=== PATIENT | male | born 1990 | race African-American/Black ===

== ENCOUNTER 2018-09-29 12:16 | Emergency (ER) | payer MEDICAID ==
[~2018-09-29] VITALS: Ht 180.3 cm; Wt 54.4 kg
[2018-09-29] MEDS ORDERED: ALBUTEROL SULFATE 2.5 MG/3 ML NEBU NEB ONE (12:45)
[2018-09-29] MEDS ORDERED: IPRATROPIUM BROMIDE 0.5 MG/2.5 ML NEBU NEB ONE (12:45)
[2018-09-29] MEDS ORDERED: predniSONE 10 MG TABLET PO ONE (12:45)
[2018-09-29] MEDS ORDERED: ALBUTEROL SULFATE 2.5 MG/ 0.5 ML NEBU ONE (12:52)
[2018-09-29] MEDS ORDERED: ALBUTEROL SULFATE 2.5 MG/3 ML NEBU ONE (12:52)
[2018-09-29] MEDS ORDERED: IPRATROPIUM BROMIDE 0.5 MG/2.5 ML NEBU ONE (12:52)
[2018-09-29] MEDS ORDERED: predniSONE 10 MG TABLET ONE (12:55)
[2018-09-29] MEDS ORDERED: predniSONE 50 MG TABLET ONE (12:55)
[2018-09-29 13:03] LABS: BASOPHILS # (AUTO) 0.1 K/uL (0.0-8.0); BASOPHILS % (AUTO) 0.9 % (0.0-2.0); EOSINOPHILS # (AUTO) 0.3 K/uL (0.0-0.7); EOSINOPHILS % (AUTO) 5.3 % (0.0-7.0); HEMATOCRIT 41.5 % (36.7-47.1); LYMPHOCYTES # (AUTO) 1.8 K/uL (20.0-40.0); LYMPHOCYTES % (AUTO) 30.5 % (20.5-51.5); MEAN CORPUSCULAR HEMOGLOBIN 29.5 uug (23.8-33.4); MEAN CORPUSCULAR HGB CONC 34 g/dL (32.5-36.3); MEAN CORPUSCULAR VOLUME 87.4 fL (73.0-96.2); MONOCYTES # (AUTO) 0.7 K/uL (2.0-10.0); MONOCYTES % (AUTO) 12.1 % (0.0-11.0); NEUTROPHILS % (AUTO) 51.2 % (38.5-71.5); PLATELET COUNT (AUTO) 188 K/uL (152-348); RED BLOOD CELL COUNT(AUTO) 4.75 MIL/uL (4.06-5.63); WHITE BLOOD COUNT (AUTO) 5.8 K/uL (3.6-10.2)
[2018-09-29 13:07] LABS: POTASSIUM 3.4 mmol/L (3.5-5.1)
[2018-09-29 13:21] LABS: BILIRUBIN,DIRECT 0.1 mg/dL (0.0-0.2); BILIRUBIN,TOTAL 0.4 mg/dL (0.2-1.0); TOTAL PROTEIN, SERUM 7.1 g/dL (6.4-8.2)
[2018-09-29 14:00] VITALS: BP 115/81
--- NOTE | 2018-09-29 14:00 | NUR ---
Patient discharged to home in stable conditon. Written and verbal after care instructions given. Patient verbalizes understanding of instructions.
--- NOTE | 2018-09-29 14:00 | NUR ---
Patient discharged to home in stable conditon. Written and verbal after care instructions given. Patient verbalizes understanding of instructions.pt says feels better. [email or web address] [email or web address].pt accompaned by friend
== END 2018-09-29 14:02 | disposition home or self-care (01) ==
LOC: ER 12:18
DX: J45.909 Unspecified asthma, uncomplicated (principal)
CPT/HCPCS: 36415; 71045; 80048; 80076; 83880; 84484; 85025; 93005; 94644; 99285; J7512 ×2; 70030-TC; A4663; J3590

== ENCOUNTER 2025-02-02 18:58 | Emergency (ER) | payer MEDICAID ==
[~2025-02-02] VITALS: Ht 180.3 cm; Wt 52.2 kg
[2025-02-02 19:42] LABS: CREATININE 0.9 mg/dL (0.6-1.3); SODIUM SERUM 132.0 mmol/L (136-145); UREA NITROGEN, BLOOD 11.0 mg/dL (7-18)
[2025-02-02 19:43] LABS: PLATELET COUNT (AUTO) 155 K/uL (152-348); RED BLOOD CELL COUNT(AUTO) 4.75 MIL/uL (4.06-5.63); RED CELL DISTRIBUTION WIDTH 13.8 % (12.1-16.2); WHITE BLOOD COUNT (AUTO) 4.8 K/uL (3.6-10.2)
[2025-02-02] MEDS: FAMOTIDINE. 20 MG/2 ML VIAL IV ONE (19:43)
[2025-02-02] MEDS: IV NS 1000 ML 1,000 ML IV ONE (19:43)
[2025-02-02] MEDS: KETOROLAC TROMETHAMINE 15 MG INJ IVP ONE (19:43)
[2025-02-02] MEDS: ONDANSETRON 4 MG/2 ML VIAL IV ONE (19:43)
[2025-02-02 19:53] LABS: ASPARTATE AMINOTRANSFERASE 49.0 U/L (15-37); TOTAL PROTEIN, SERUM 7.2 g/dL (6.4-8.2)
[2025-02-02 21:20] LABS: *BILIRUBIN,URIN NEGATIVE (NEGATIVE); *CLARITY,URINE CLEAR (CLEAR); *COLOR,URINE YELLOW (YELLOW); *KETONES,URINE NEGATIVE (NEGATIVE); *PROTEIN,URINE 1+ (NEGATIVE); *UROBILINOGEN,URINE 2.0 E.U./dl (NORMAL); LEUKOCYTE ESTERASE ,URINE NEGATIVE (NEGATIVE); NITRITE, URINE NEGATIVE (NEGATIVE); UGLUCOSE NEGATIVE (NEGATIVE)
[2025-02-02 21:21] VITALS: BP 108/71
[2025-02-02 21:24] LABS: *BLOOD, URINE TRACE (NEGATIVE)
[2025-02-02 21:31] LABS: SQUAMOUS EPITHELIAL CELL,UR FEW /HPF (NONE SEEN)
[2025-02-02 22:07] VITALS: BP 105/73; TEMP 97.8; O2SAT 99
== END 2025-02-02 22:10 | disposition home or self-care (01) ==
LOC: ER 18:58
DX: J98.8 Other specified respiratory disorders (principal); A08.4 Viral intestinal infection, unspecified; B97.89 Other viral agents as the cause of diseases classified elsewhere; F12.90 Cannabis use, unspecified, uncomplicated; F17.200 Nicotine dependence, unspecified, uncomplicated
CPT/HCPCS: 99284; 96374; 96375; 71045; 96361; 87426; 87804 ×2; 80053; 81001; 83690; 85025; 36415; J1885; J1308; J2405; J7040; A4606; A4663